=== PATIENT | female | born 1975 | race Caucasian/White ===

== ENCOUNTER 2016-12-13 17:48 | Emergency (ER) | payer MEDICAID ==
[~2016-12-13] VITALS: Ht 160 cm; Wt 62.5 kg
[~2016-12-13 17:48] MED LIST: FAMO20TA18 PO; LORA-186 PO; NAPR-260 PO; TRAM50TA2 PO; prenatals
[2016-12-13 17:53] VITALS: Ht 160 cm; Wt 62.5 kg
[2016-12-13] MEDS ORDERED: KETOROLAC 30 MG INJ IM STA (20:23)
[2016-12-13 20:35] LABS: URINE BLOOD (Dip) POC Negative (NEGATIVE)
--- NOTE | 2016-12-13 20:37 | ERD ---
ER Documentation Chief Complaint Date/Time DATE: 12/13/16 TIME: 20:33 Chief Complaint right breast pain x 3 days HPI This a 41-year-old female who presents to the emergency department today complaining of bilateral breast pain for the past 3 days. Patient states that she has tried taking 800 ibuprofen with no improvement in pain. States that she has a lump on her right breast. States that she called her primary care doctor who cannot get her an appointment for a couple weeks and told her to come here to get "an ultrasound, CT scan or MRI". Denies any fevers or chills. Denies breast-feeding. ROS All systems reviewed and are negative except as per history of present illness. Medications Home Meds Active Scripts Naproxen* (Naprosyn*) 500 Mg Tablet, 500 MG PO BID Y for PAIN AND/OR INFLAMMATION, #30 TAB Prov:PRINCE CONCEPCION PA-C 12/13/16 Hydrocodone/Acetaminophen ([place] 5-325 Tablet) 1 Each Tablet, 1 TAB PO Q6H Y for PAIN, #12 TAB Prov:PRINCE CONCEPCION PA-C 12/13/16 Famotidine* (Famotidine*) 20 Mg Tablet, 20 MG PO DAILY, #30 TAB Prov:CELESTINA STEWARD PA-C 06/06/16 Loratadine* (Claritin*) 10 Mg Tablet, 10 MG PO DAILY, #30 TAB Prov:CELESTINA STEWARD PA-C 06/06/16 Naproxen* (Naprosyn*) 500 Mg Tablet, 500 MG PO BID Y for PAIN AND/OR INFLAMMATION, #30 TAB Prov:PRINCE CONCEPCION PA-C 04/29/16 Tramadol HCl (Tramadol HCl) 50 Mg Tablet, 50 MG PO Q4 Y for PAIN, #20 TAB Prov:PRINCE CONCEPCION PA-C 04/29/16 Reported Medications [prenatals] No Conflict Check 02/09/13 Allergies Allergies: Coded Allergies: No Known Allergies (Verified Allergy, Mild, 12/13/16) PMhx/Soc History of Surgery: Yes (C SECTION X3) Anesthesia Reaction: No Hx Neurological Disorder: No Hx Respiratory Disorders: No Hx Cardiac Disorders: No Hx Psychiatric Problems: No Hx Miscellaneous Medical Probl: No Hx Alcohol Use: No Hx Substance Use: No Hx Tobacco Use: No Smoking Status: Never smoker Physical Exam Vitals Vital Signs Date Time Temp Pulse Resp B/P Pulse Ox O2 Delivery O2 Flow Rate FiO2 12/13/16 17:53 68.5 90 20 135/61 99 Physical Exam Const: No acute distress Head: Atraumatic Eyes: Normal Conjunctiva ENT: Normal External Ears, Nose and Mouth. Neck: Full range of motion..~ No meningismus. Resp: Clear to auscultation bilaterally Cardio: Regular rate and rhythm, no murmurs Breast right breast with 0.5 cm mass right side close to the nipple that is subcutaneous. Left breast evidence of excisional scar lateral aspect outer quadrant. Diffusely tender to palpation bilateral breasts. No purulent drainage. No erythema or warmth. Skin: No petechiae or rashes Neur: Awake and alert Psych: Normal Mood and Affect Results 24 hrs Laboratory Tests Test 12/13/16 20:35 Bedside Urine pH (LAB) 5.5 Bedside Urine Protein (LAB) Negative Bedside Urine Glucose (UA) Negative Bedside Urine Ketones (LAB) Negative Bedside Urine Blood Negative Bedside Urine Nitrite (LAB) Negative Bedside Urine Leukocyte Esterase (L Negative Current Medications Medications (Trade) Dose Ordered Sig/[place] Route PRN Reason Start Time Stop Time Status Last Admin Dose Admin Ketorolac Tromethamine (Toradol) 30 mg ONCE STAT IM 12/13/16 20:23 12/13/16 20:25 DC 12/13/16 20:35 DIAGNOSTIC IMAGING REPORT Patient: ESSENCE FLORES : 1975 Age: 41 Sex: F MR #: [id number] DOS: 12/13/16 0000 Ordering MD: PRINCE CONCEPCION PA-C Location: [facility] Room/Bed: PROCEDURE: Ultrasound breast limited CLINICAL INDICATION: Bilateral breast pain. TECHNIQUE: An ultrasound of both breasts was performed utilizing ambrocio scale imaging. COMPARISON: None. FINDINGS: Normal breast parenchyma is visualized. No mass, cyst, or fluid collection is identified. There are normal-sized lymph nodes in the right axilla. IMPRESSION: 1. Normal ambrocio-scale appearance of the bilateral breasts. BI-RADS 1: Negative RPTAT: HTAR .Hector Perez MD, MD Date Time Electronically viewed and signed by .Hector Perez MD, on 12/13/2016 22:47 .R/ CC: PRINCE CONCEPCION PA-C Procedures/MDM This is a 41-year-old female who presents to the emergency department today complaining of bilateral breast pain for the past 3 days in her right breast worse than her left with a right breast mass. On physical exam patient had a 0.5 cm lump that was subcutaneous around her right nipple. Patient is afebrile and otherwise well-appearing. There is no erythema or warmth. Patient is not breast-feeding. Low suspicion for mastitis, abscess. Patient was insistent on receiving testing today. I asked Calvin to the patient that we did not do CT scans or MRIs for breast as it was an outpatient procedure. I did explain to the patient that I could do an ultrasound but that she could be waiting for quite some time to have a specialist read it. 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 Patient decided that she was staying at the ultrasound. Patient did indicate that [id number] medications have not helped with her pain and therefore was given a Toradol injection. Breast ultrasound shows BI-RADS 1 negative. There is normal grayscale appearance of bilateral breast. There is normal breast visualized. No mass, cyst or fluid collection is identified. Normal-sized lymph nodes in the right axilla. Patient has breast pain of uncertain etiology. Patient was given a prescription for [place], Naprosyn, and she is instructed to follow-up with her primary care physician for outpatient management and likely outpatient mammogram. I have explained this to the patient. At this time the patient is stable for discharge and outpatient management. Patient should follow up with their PCP in the next 1-2 days. They may return to the emergency department sooner for any persistent or worsening of symptoms. Patient understood and agreed with the plan. Departure Diagnosis: Primary Impression: Breast pain Condition: Fair PRINCE CONCEPCION PA-C Dec 13, 2016 20:37
--- NOTE | 2016-12-13 22:48 | RADRPT ---
PROCEDURE: Ultrasound breast limited CLINICAL INDICATION: Bilateral breast pain. TECHNIQUE: An ultrasound of both breasts was performed utilizing ambrocio scale imaging. COMPARISON: None. FINDINGS: Normal breast parenchyma is visualized. No mass, cyst, or fluid collection is identified. There ar e normal-sized lymph nodes in the right axilla. IMPRESSION: 1. Normal ambrocio-scale appearance of the bilateral breasts. BI-RADS 1: Negative RPTAT: HTAR .Hector Perez MD, MD Date Time Electronically viewed and signed by .Hector Perez MD, on 12/13/2016 22:47 .R/
[2016-12-13] MEDS ORDERED: HYDR-906 PO (22:56)
[2016-12-13] MEDS ORDERED: NAPR-260 PO (22:56)
[2016-12-13 23:08] VITALS: BP 122/66; PULSE 77; RESP 18; TEMP 98.6
== END 2016-12-13 23:09 | disposition home or self-care (01) ==
LOC: FTE 17:48
DX: N64.4 Mastodynia (principal)
CPT/HCPCS: 76642; 81003; J1885; 96372